=== PATIENT | female | born 1935 | race Caucasian/White ===

== ENCOUNTER 2017-01-16 12:20 | Day surgery (SDC) | payer MEDICARE, BC ==
--- NOTE | 2017-01-16 07:26 | History and Physical Report ---
CHIEF COMPLAINT/HISTORY OF CHIEF COMPLAINT: This patient presents with a history of a phantom limb syndrome and a post laminectomy radiculitis. Due to the failure of all therapies, a spinal cord stimulator trial was conducted on with up to 75-90% pain control. Due to the failure of all of her other therapies and the success of the stimulator trial, she presents today after appropriate clearance and education for permanent implant. PAST MEDICAL HISTORY: Peripheral vascular disease, bladder dysfunction, depression, difficulty sleeping, and coronary artery disease. SOCIAL HISTORY: Caffeine. FAMILY HISTORY: Noncontributory. PAST SURGICAL HISTORY: BKA left lower extremity and lumbar laminectomy. MEDICATIONS ON ADMISSION: To be provided. ALLERGIES: REVIEW OF SYSTEMS: PHYSICAL EXAMINATION: Height is 5'3", weight is 115. No vital signs. HEENT: Within normal limits. LUNGS: Clear. HEART: Regular rate and rhythm. ABDOMEN: Nontender. MUSCULOSKELETAL: Examination of the musculoskeletal system shows the phantom limb syndrome to be primarily left lower extremity. There is a low back component, but the primary element is lower extremity. Ambulation - Assistive device utilized and prosthesis utilized. Sensory kimball are intact. NEUROLOGIC: Cranial nerves are intact. IMPRESSION: 1. POST LUMBAR LAMINECTOMY SYNDROME, ICD10 CODE M96.1. 2. LUMBAR RADICULITIS, ICD10 CODE M54.16, PHANTOM LIMB SYNDROME G54.16. PLAN: The patient is here for implantation of a permanent spinal cord stimulator based upon the successful trial and failure of all other therapies. The patient understands all of the potential risks, side effect, and complications including nerve root injury and dural puncture. All of the potential information provided through the box closing machine operator has been reviewed and discussed. All of the risks, side effects and complications have also been reviewed through the office. The patient understands and has consented. LINDSEY NEAL D.O. Date & Time JOB NUMBER: [id number] MTDD
[~2017-01-16 12:20] MED LIST: ACETAMINOPHEN 1000MG/100 ML PREMIX IV ONE; CEFAZOLIN 2 Gram 50 ML IVPB ONE; FAMOTIDINE 20MG TABLET PO ONE; MECLIZINE 25 MG TABLET PO ONE; METOCLOPRAMIDE 10 MG TABLET PO ONE
[2017-01-16 12:59] LABS: BLEEDING TIME 5.5 MINUTES (1.5-7.0)
[2017-01-16 13:06] LABS: HEMATOCRIT 38.6 % (35.0-47.0); HEMOGLOBIN 12.6 gm/dl (11.6-16.0); MEAN CELL VOLUME 96.7 fl (81-97); MEAN CORPUSCULAR HEMOGLOBIN 31.6 pg (27-33); MEAN CORPUSCULAR HGB CONC 32.6 g/dl (32-36); MEAN PLATELET VOLUME 10.4 fl (7.4-10.4); PLATELET COUNT 327 K/uL (130-400); RED BLOOD COUNT 3.99 M/uL (3.80-5.40); RED CELL DISTRIBUTION WIDTH 13.6 % (11.5-14.5); WHITE BLOOD COUNT W/O DIFF 11.8 K/uL (4.2-12.2)
[2017-01-16 13:19] LABS: PARTIAL THROMBOPLASTIN TIME 26.4 SECONDS (24.5-39.1)
[2017-01-16 13:49] LABS: ANION GAP 14.1 (7-16); BLOOD UREA NITROGEN 13 mg/dL (7-17); CARBON DIOXIDE 25.9 mmol/L (22-30); CREATININE 0.8 mg/dL (0.52-1.04); EST GLOMERULAR FILTRATION RATE > 60 ml/min; GLUCOSE,RANDOM 102 mg/dL (70-110)
[2017-01-16] MEDS ORDERED: EPHEDRINE SULFATE 50 MG/ML ML IV ONE (14:00)
[2017-01-16] MEDS ORDERED: BUPIVACAINE 0.5% W/EPI MPF 30 ML VIAL IVP ONE (14:00)
[2017-01-16] MEDS ORDERED: MIDAZOLAM HCL 2MG/2ML VIAL IV ONE (14:00)
[2017-01-16] MEDS ORDERED: *PACU ONLY* KETAMINE HCL 10 MG/ML (20ML) VIAL IV ONE (14:00)
[2017-01-16] MEDS ORDERED: CEFAZOLIN 1G VIAL IM ONE (14:00)
[2017-01-16] MEDS ORDERED: LIDOCAINE 1% W/EPI 1:200,000 MPF 30ML SQ ONE (14:00)
[2017-01-16] MEDS ORDERED: LIDOCAINE 2% MDV (20MG/ML) 20ML VIAL IV ONE (14:00)
[2017-01-16] MEDS ORDERED: PROPOFOL 10 MG/ML VIAL IV ONE (14:00)
[2017-01-16] MEDS ORDERED: FENTANYL PF 100MCG/2ML VIAL IV ONE (14:00)
[2017-01-16] MEDS ORDERED: AL HYDROX/MAG HYDROX 30ML UD PO PRN (18:25)
[2017-01-16] MEDS ORDERED: HYDROCODONE/APAP 7.5/325MG TABLET PO PRN ×2 (18:25)
[2017-01-16] MEDS ORDERED: METOCLOPRAMIDE 10 MG TABLET PO PRN (18:25)
[2017-01-16] MEDS ORDERED: DIPHENHYDRAMINE HCL 25 MG CAPSULE PO PRN ×2 (18:25)
[2017-01-16] MEDS ORDERED: OXYCODONE/APAP 10MG-325MG TABLET PO PRN ×2 (18:25)
[2017-01-16] MEDS ORDERED: ACETAMINOPHEN 325 MG TAB PO PRN ×2 (18:25)
[2017-01-16] MEDS ORDERED: HYDROMORPHONE HCL 1 MG/ML CPJ IM PRN (18:25)
[2017-01-16] MEDS ORDERED: SENNOSIDES/DOCUSATE SODIUM UD CAPSULE PO PRN ×2 (18:25)
[2017-01-16] MEDS ORDERED: TEMAZEPAM 15 MG CAPSULE PO PRN ×2 (18:25)
[2017-01-16] MEDS ORDERED: DIPHENHYDRAMINE HCL IV 50 MG/ML VIAL IVP PRN ×2 (18:25)
[2017-01-16] MEDS ORDERED: METOCLOPRAMIDE HCL 10 MG/2 ML VIAL IVP PRN (18:25)
[2017-01-16] MEDS ORDERED: HYDROMORPHONE HCL 2 MG/ML VIAL IM PRN (18:25)
[2017-01-16] MEDS ORDERED: TRAZODONE 50 MG TABLET PO SCH (22:00)
[2017-01-16] MEDS: CEFAZOLIN 2 Gram 50 ML IVPB SCH (22:30)
[2017-01-16] MEDS: DULOXETINE HCL 30 MG CAPSULE.DR PO SCH (22:31)
[2017-01-16] MEDS: 0.9 % SODIUM CHLORIDE 10ML SYR IVP SCH (23:00)
[2017-01-17] MEDS: CEFAZOLIN 2 Gram 50 ML IVPB SCH (06:41)
[2017-01-17] MEDS: 0.9 % SODIUM CHLORIDE 10ML SYR IVP SCH (11:55)
[2017-01-17] MEDS: DULOXETINE HCL 30 MG CAPSULE.DR PO SCH (12:26)
[2017-01-18] MEDS ORDERED: ACETAMINOPHEN 1000MG/100 ML PREMIX IV ONE (06:00)
[2017-01-18] MEDS ORDERED: MECLIZINE 25 MG TABLET PO ONE (06:00)
[2017-01-18] MEDS ORDERED: METOCLOPRAMIDE 10 MG TABLET PO ONE (06:00)
[2017-01-18] MEDS ORDERED: CEFAZOLIN 2 Gram 50 ML IVPB ONE (06:00)
[2017-01-18] MEDS ORDERED: FAMOTIDINE 20MG TABLET PO ONE (06:00)
--- NOTE | 2017-01-21 10:48 | Operative Note ---
DATE OF SURGERY: 01/16/2017 PREOPERATIVE DIAGNOSES: 1. 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 2. Lumbar radiculitis, ICD10 M54.16 and M54.17. 3. Post amputation and phantom limb syndrome, ICD10 G54.6. OPERATION: 1. Fluoroscopic-guided epidural access T11-12 placement of spinal cord stimulator lead 1. A [employer] Octapolar 8 electrodes positioned left T8. 2. Complex programming of lead 1, 20 minutes. 3. Fluoroscopic-guided epidural access T12-L1 placement of spinal cord stimulator lead 2. A [employer] Octapolar with 8 electrodes positioned right T8. 4. Complex programming of lead 2, 20 minutes. 5. Incision, subcutaneous dissection, anchoring leads 1 to leads 2 to supraspinous fascia using [employer] locking anchor. 6. Incision, subcutaneous dissection, and creation of subcutaneous pouch at right posterior gluteal margin for placement of generator identified as non-rechargeable [employer]. 7. Tunnelling between pouches. Placement of leads, 1 lead into generator pouch, each lead interfaced with the generator. 8. Placement of generator into pouch, securing to posterior fascia using nonabsorbable suture. Placement of leads into pouch. 9. Closure of both incisions. Vicryl for fascia. Subcuticular Vicryl for skin. Dermabond closure. 10. Complex programming internal generator, recovery room, home use just under 20 minutes. Anesthesia: Local sedation. Anesthesia Provider: Veronica LUGO. Indication: This patient presents with a history of a postlaminectomy radiculitis and a phantom limb syndrome. Due to failure of all therapies, a spinal cord stimulator trial was conducted with 75% to 90% pain control. Due to the failure of all therapies and the success of the trial, she presents today for implantation of permanent system. SURGERY: Intravenous line, vital sign monitoring, IV sedation. Prepped, draped in sterile technique, under imaging. The upper and lower spaces at T11 and 12 were both identified and marked using2 eparate curved access Epimed needles with loss of resistance in the space. At 11-12, spinal cord stimulator lead 1, a [employer] Octapolar 8 electrodes was advanced, positioned left side T8. With the epidural access at 12-1 using curved access Epimed needle with loss of resistance, spinal cord stimulator lead 2, also a [employer] Octapolar 8 electrode advanced right of the midline T8. Complex programming of lead 1 over 20 minutes, followed by complex programming of lead 2 over 20 minutes, ultimately resulted in a pattern of stimulation across the back and into the legs. Although the patient seemed to be somewhat disoriented, and with a long history of cognitive impairment, we allowed the patient to rest, turned the system on. Evaluated. Turned the system off and evaluated again. Allowing the patient to take the appropriate amount of time-out necessary to regain her orientation. In the end, she was convinced we were in the right spot and convinced that we had all the stimulation areas in the right pain areas, and after several questions, which were repeated about implanting or remove, she opted to implant the system. She was then re-sedated. The skin above and below the needles infiltrated. Incision made. Subcutaneous dissection was conducted to the supraspinous fascia. Each lead was anchored to the supraspinous fascia using a [employer] locking anchor. At the right posterior gluteal margin, or site picked by the patient for the generator, skin infiltrated. Incision made. Subcutaneous dissection was used to form pouch of suitable size for a non-rechargeable [employer] generator. A tunnelling tool was then used to carry the 2 leads into the generator pouch, and each lead was directly interfaced to the generator. Antibiotic irrigation and Bovie for hemostasis. The generator was placed into the pouch and secured to the fascia with nonabsorbable suture. The leads were placed into their own pouch and then incisions were closed, Vicryl for fascia, running subcuticular Vicryl for skin. Dermabond closure. She was transported to the recovery room stable. We will keep the patient overnight because of the time of day, the amount of surgery and her age, and discharge in the morning. DISCHARGE INSTRUCTIONS: 1. Sites to remain clean and dry. No showering or bathing in any way that would destruct dressings. If it happens, contact clinic. 2. Standard medications resumed including Levaquin antibiotic 500 mg once a day for 14 days. 3. She will return to the office in 3-5 days to evaluate the incisions. Until then, her activity level should stay low. All other instructions provided. Numbers to contact with problems given. Her son was involved in the discussion. DO MISAEL Jack
--- NOTE | 2017-01-22 13:16 | RADIOLOGY REPORT ---
EXAM: AP THORACOLUMBAR SPINE HISTORY: POST SPINAL CORD STIMULATOR IMPLANT. TECHNIQUE: A single AP view of the thoracolumbar spine was obtained. Comparison: None. FINDINGS: There is a battery pack overlying the right lower quadrant with spinal wires extending up to the top edge of the film which corresponds to the T7 level. Because the metallic leads are still seen on the very top edge of the film, I am uncertain as to whether they may extend further superiorly. If clinically warranted, a repeat AP thoracic spine film to include higher than the thoracic level might be useful. There is probably a vascular graft in the left iliac artery overlying the left side of the sacrum. Numerous calcifications overlying the left upper quadrant may be calcified splenic granulomas. Degenerative change in the spine. IMPRESSION: BATTERY PACK RIGHT LOWER QUADRANT WITH ASSOCIATED WIRES EXTENDING UP TO THE T7 LEVEL WHICH IS THE VERY TOP OF THE FILM DESCRIBED ABOVE. JOB NUMBER: [id number] MTDD
== END 2017-01-17 13:05 ==
LOC: SUR 12:20 → MEDSURG 18:35 → SUR 01-17 13:05
PROVIDERS: ATTEND Pain Medicine Interventional Pain Medicine
DX: M96.1 Postlaminectomy syndrome, not elsewhere classified (principal); M54.16 Radiculopathy, lumbar region; M54.17 Radiculopathy, lumbosacral region; G54.6 Phantom limb syndrome with pain; I10 Essential (primary) hypertension; E78.00 Pure hypercholesterolemia, unspecified; E03.9 Hypothyroidism, unspecified; J44.9 Chronic obstructive pulmonary disease, unspecified
CPT/HCPCS: 72020; 80048; 85002; 85027; 85730; 95972; J0690